=== PATIENT | female | born 1970 | race Caucasian/White ===

== ENCOUNTER 2018-07-20 20:50 | Emergency (ER) | payer OTHER ==
[2018-07-20 21:04] VITALS: RESP 16; O2SAT 98
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
[2018-07-20 23:39] VITALS: BP 100/61; PULSE 73; TEMP 98.5
== END 2018-07-20 23:39 | disposition home or self-care (01) ==
LOC: C.ER 20:50
DX: F10.129 Alcohol abuse with intoxication, unspecified (principal)